=== PATIENT | female | born 1960 | race Caucasian/White ===

== ENCOUNTER 2021-01-03 12:20 | Emergency (ER) | payer MEDICARE, OTHER ==
[~2021-01-03] VITALS: Ht 172.7 cm; Wt 75.8 kg
[2021-01-03] MEDS ORDERED: TRAM100T33 PO (12:52)
[2021-01-03] MEDS ORDERED: IBUP200T49 PO (12:52)
[2021-01-03] MEDS ORDERED: FURO40TA6 PO (12:53)
[2021-01-03] MEDS ORDERED: SPIR25TA5 PO (12:53)
[2021-01-03] MEDS ORDERED: AMLO-211 PO (12:53)
--- NOTE | 2021-01-03 12:56 | NUR ---
PT HERE FROM . RECENT LEVAQUIN USE S/P SINUS INFECTION. BILAT SORE KNEES L>R, INCR L KNEE PAIN AND SWELLING LAST NIGHT HERE FOR R/O DVT VS TENDON RUPTURE. WALKS W LIMP. NO REDNESS, SOME SWELLING NOTED, ONLY PAIN W MOVEMENT.
--- NOTE | 2021-01-03 13:30 | NUR ---
PT SITTING ON [facility]IE[facility]/JOE. CALL LIGHT WITHIN REACH. NO NEEDS AT THIS TIME
[2021-01-03 13:49] VITALS: BP 122/62
--- NOTE | 2021-01-03 14:26 | NUR ---
Patient given discharge instructions and RX, they have confirmed that they understand the instructions. Patient ambulatory with steady gait.
== END 2021-01-03 14:28 | disposition home or self-care (01) ==
LOC: ED 14:13
DX: M25.562 Pain in left knee (principal); M79.652 Pain in left thigh; I10 Essential (primary) hypertension
CPT/HCPCS: 99284